=== PATIENT | female | born 1945 | race Caucasian/White ===

== ENCOUNTER 2019-06-12 22:21 | Emergency (ER) | payer MEDICARE, OTHER ==
[~2019-06-12] VITALS: Ht 152.4 cm; Wt 54.5 kg
[2019-06-12] MEDS ORDERED: CARB-101 PO (22:29)
[2019-06-12] MEDS ORDERED: RASA0.5T PO (22:30)
[2019-06-12] MEDS ORDERED: LISI-661 PO (22:30)
[2019-06-13 01:30] VITALS: BP 129/75
== END 2019-06-13 03:10 | disposition home or self-care (01) ==
LOC: EMS 22:23
DX: S70.02XA Contusion of left hip, initial encounter (principal); G20 Parkinson's disease; Z88.0 Allergy status to penicillin; Z88.5 Allergy status to narcotic agent; Z79.899 Other long term (current) drug therapy; W01.0XXA Fall on same level from slipping, tripping and stumbling without subsequent striking against object, initial encounter; Y93.01 Activity, walking, marching and hiking; Y92.89 Other specified places as the place of occurrence of the external cause; Y99.8 Other external cause status
CPT/HCPCS: 73503